=== PATIENT | female | born 2000 | race Caucasian/White ===

== ENCOUNTER 2024-03-23 12:30 | Emergency (ER) | payer OTHER, SELFPAY ==
[2024-03-23 12:50] VITALS: BP 123/82; PULSE 70; RESP 16; TEMP 36.5; O2SAT 97; BMI 18.9
--- NOTE | 2024-03-23 13:33 | ED_ITS ---
HPI - General Adult General Chief complaint: Abdominal Pain Stated complaint: abdominal pain/food poisoning Time Seen by Provider: 03/23/24 13:05 Source: patient Mode of arrival: ambulatory Limitations: no limitations History of Present Illness HPI narrative: 23-year-old female presenting today with abdominal cramping. Patient states that approximately 3-4 days ago she ate a pickle that was scanned by her father, and she noticed was moldy. Last night she developed lower abdominal cramping. Mild, comes and goes. No vomiting or fevers. She had loose stools this morning. She is due for her menses in approximately 1 week. She denies sexual activity. She denies pain with eating. Denies any urinary symptoms. Her friend told her that she probably developed botulism, patient is concerned about this and comes in for evaluation. Patient denies any changes in her vision, any neurologic deficits. Related Data Home Medications ?Medication ?Instructions ?Recorded ?Confirmed fluticasone propionate 220 2 inh inhalation TID 03/23/24 03/23/24 mcg/actuation HFA aerosol inhaler (Flovent HFA) lanzoprazole 30 mg PO DAILY PRN 03/23/24 03/23/24 Allergies Allergy/AdvReac Type Severity Reaction Status Date / Time omeprazole (From Prilosec) Allergy Mild Hives Verified 03/23/24 12:57 Review of Systems Status of ROS: Reports: 10 or more systems reviewed and unremarkable except as noted in History and below Exam Narrative: Exam Narrative: Well-nourished well-developed patient in no acute distress, clearly anxious. Al ert and oriented. Answers questions appropriately. No tangential or magical thinking noted. Patient speaks in full sentences without needing to catch her breath. HEENT: Normocephalic atraumatic. Pupils are equally round reactive to light. Extraocular muscles are intact. Conjunctivae are moist without any icterus noted. Moist mucous membranes. Cardiovascular: Heart is regular rate and rhythm S1 and S2 are present without any murmurs. Lungs: Clear to auscultation bilaterally no wheezes rhonchi or rales are appreciated. Patient takes deep breaths without any discomfort. Abdomen: Soft and nontender nondistended with normal bowel sounds. Extremities: Bilateral lower extremities are without edema. Skin: Well perfused without any obvious rashes. normal gait. No nystagmus. Const: Vital Signs, click to edit/add: Vital Signs - 24 hr 03/23/24 12:50 Temperature 97.7 F Pulse Rate [Pulse Oximeter] 70 Respiratory Rate 16 Blood Pressure [Ri ght Upper Arm] 123/82 Pulse Oximetry 97 Oxygen Delivery Me thod Room Air Course Vital Signs Vital signs: Initial Vital Signs Temperature 97.7 F 03/23/24 12:50 Temperature Source Temporal Artery Scan 03/23/24 12:50 Pulse Rate 70 03/23/24 12:50 Respiratory Rate 16 03/23/24 12:50 Blood Pressure 123/82 03/23/24 12:50 Blood Pressure Mean 95 03/23/24 12:50 Blood Pressure Position Sitting 03/23/24 12:50 Pulse Oximetry 97 03/23/24 12:50 Oxygen Delivery Method Room Air 03/23/24 12:50 Vital Signs Temperature 97.7 F 03/23/24 12:50 Pulse Rate 70 03/23/24 12:50 Respiratory Rate 16 03/23/24 12:50 Blood Pressure 123/82 03/23/24 12:50 Pulse Oximetry 97 03/23/24 12:50 Oxygen Delivery Method Room Air 03/23/24 12:50 Temperature 97.7 F 03/23/24 12:50 Pulse Rate 70 03/23/24 12:50 Respiratory Rate 16 03/23/24 12:50 Blood Pressure 123/82 03/23/24 12:50 Pulse Oximetry 97 03/23/24 12:50 Oxygen Delivery Method Room Air 03/23/24 12:50 Medical Decision Making MDM Narrative Medical decision making narrative: 23-year-old female with lower abdominal cramping. We discussed multiple causes of this, including anxiety. I discussed with of the likelihood of her developing botulism from a mold pickle is slim to none. Patient is reassured. We did discuss anxiety. Recommend she follow up with her primary care provider. Discharge Plan Discharge Clinical Impression: Abdominal cramping Additional Instructions: Follow-up with your primary care provider as needed. Prescriptions: No Action fluticasone propionate [Flovent HFA] 220 mcg/actuation HFA aerosol inhaler 2 inh inhalation TID lanzoprazole 30 mg PO DAILY PRN Stand Alone Forms: [facility] Info Instructions
== END 2024-03-23 13:35 | disposition home or self-care (01) ==
PROVIDERS: Emergency Provider Family Medicine
DX: R10.30 Lower abdominal pain, unspecified (principal)
CPT/HCPCS: 99283